=== PATIENT | male | born 1970 | race Caucasian/White ===

== ENCOUNTER → 2016-12-15 | Outpatient (CLI) | payer BC ==
[~2016-12-15] MED LIST: ASPI81TA28 PO; ATOR-22 PO; DICL-201 PO; ESOM1CAP24 PO
--- NOTE | 2016-12-15 08:45 | DIAGNOSTIC IMAGING REPORT ---
ABDOMEN ULTRASOUND FOR HERNIA CLINICAL HISTORY: RIGHT GROIN PAIN COMPARISON STUDY: None. FINDINGS: Small fat-containing reducible right inguinal hernia. No masses or fluid collections identified. IMPRESSION: Small fat-containing reducible right inguinal hernia. Electronically signed by: Nnamdi Solomon M.D. 12/15/2016 8:44 AM Dictated Date/Time: 12/15/2016 8:32 AM
== END | disposition home or self-care (01) ==
LOC: C.ULTRBC 07:56
PROVIDERS: ATTEND Physician Assistant
DX: R10.30 Lower abdominal pain, unspecified (principal)